=== PATIENT | male | born 1985 | race Two or more races ===

== ENCOUNTER 2018-12-22 14:07 | Emergency (ER) | payer MEDICAID ==
[~2018-12-22] VITALS: Ht 182.9 cm; Wt 87.1 kg
[2018-12-22 15:47] VITALS: BP 147/83
[2018-12-22] MEDS ORDERED: LIDOCAINE 1% HCL (LOCAL ANESTH.) INJ 20ML MDV ONE (16:25)
[2018-12-22] MEDS ORDERED: IBUPROFEN 800 MG TAB PO ONE (16:45)
[2018-12-22] MEDS ORDERED: TETANUS-DIPTH-ACEL PERTUSSIS 0.5ML SYRG IM ONE (16:45)
== END 2018-12-22 16:55 | disposition home or self-care (01) ==
LOC: ER 14:21
DX: S61.512A Laceration without foreign body of left wrist, initial encounter (principal); F17.210 Nicotine dependence, cigarettes, uncomplicated; F12.10 Cannabis abuse, uncomplicated; W54.0XXA Bitten by dog, initial encounter; Y93.89 Activity, other specified; Y92.89 Other specified places as the place of occurrence of the external cause; Y99.8 Other external cause status
CPT/HCPCS: 12002; 90471; 90715; 99283; J2001

== ENCOUNTER 2019-01-31 19:30 | Emergency (ER) | payer MEDICAID ==
[~2019-01-31] VITALS: Ht 182.9 cm; Wt 84.8 kg
[~2019-01-31 19:30] MED LIST: CLIN1CAP4 PO; LEVO500T21 PO; NAP500T PO
[2019-01-31 19:46] VITALS: BP 114/76
[2019-01-31] MEDS: BACLOFEN 10 MG TAB PO ONE (23:28)
[2019-01-31] MEDS: HYDROcodone-ACET 5/325MG TAB PO ONE (23:28)
== END 2019-01-31 23:54 | disposition home or self-care (01) ==
LOC: ER 19:38
DX: S66.911A Strain of unspecified muscle, fascia and tendon at wrist and hand level, right hand, initial encounter (principal); M54.2 Cervicalgia; M79.641 Pain in right hand; M79.18 Myalgia, other site; F17.210 Nicotine dependence, cigarettes, uncomplicated; F12.10 Cannabis abuse, uncomplicated; Z79.2 Long term (current) use of antibiotics; Z79.899 Other long term (current) drug therapy; V09.9XXA Pedestrian injured in unspecified transport accident, initial encounter; Y93.89 Activity, other specified; Y92.89 Other specified places as the place of occurrence of the external cause; Y99.8 Other external cause status
CPT/HCPCS: 29125; 70450; 71250; 72125; 73110; 73130; 74176

== ENCOUNTER 2019-03-22 16:25 | Emergency (ER) | payer MEDICAID ==
[~2019-03-22] VITALS: Ht 182.9 cm; Wt 84.4 kg
[~2019-03-22 16:25] MED LIST changes: -CLIN1CAP4 PO; +CLIN300C8 PO
[2019-03-22 17:14] LABS: Basophils # (auto) 0.1 uL; Basophils % (auto) 1.2 % (0.0-2.0); Eosinophils # (auto) 0.1 uL; Eosinophils % (auto) 1.3 % (0.0-7.0); Hematocrit 49.8 % (41.0-53.0); Lymphocytes # (auto) 1.9 uL; Lymphocytes % (auto) 26.7 % (10.0-50.0); Mean Corpuscular Hgb Conc. 34.1 g/dL (32.0-36.0); Mean Corpuscular Volume 93.9 fL (80.0-100.0); Monocytes # (auto) 0.4 uL; Monocytes % (auto) 5.1 % (0.0-12.0); Neutrophils # (auto) 4.7 uL; Neutrophils % (auto) 65.7 % (37.0-80.0); Nucleated Red Blood Cells % 0.1 %; Platelet Count (auto) 288 10^3/uL (140-450); Red Cell Distribution Width 15.1 % (11.8-14.3); White Blood Cell 7.2 10^3/uL (4.4-10.8)
[2019-03-22 17:27] LABS: Potassium 3.9 mmol/L (3.5-5.1)
[2019-03-22 17:59] LABS: Albumin 4.6 g/dL (3.4-5.0); BUN/Creatinine Ratio 8.8; Bilirubin, Total 0.6 mg/dL (0.2-1.0); Calcium 8.6 mg/dL (8.5-10.1); Total Protein 7.9 g/dL (6.4-8.2)
[2019-03-22 18:27] LABS: Urine Bacteria NONE SEEN /hpf (None Seen); Urine Blood Negative /uL (Negative); Urine Hyaline Cast FEW /lpf (0 - 2); Urine Mucus FEW (None Seen); Urine Specific Gravity 1.033 (1.001-1.035); Urine WBC 1 /hpf (0 - 3)
[2019-03-22 18:41] LABS: Amphetamine Screen, Urine NEGATIVE (NEGATIVE); Barbiturate Scree,Urine NEGATIVE (NEGATIVE); Benzodiazephine Screen, Urine NEGATIVE (NEGATIVE); Cannabinoid Screen, Urine POSITIVE (NEGATIVE); Cocaine Screen, Urine NEGATIVE (NEGATIVE); Opiate Scree,Urine NEGATIVE (NEGATIVE); Phencyclidine Screen, Urine NEGATIVE (NEGATIVE)
[2019-03-22 22:05] VITALS: BP 138/82
== END 2019-03-22 22:30 | disposition home or self-care (01) ==
LOC: ER 16:25
DX: T67.5XXA Heat exhaustion, unspecified, initial encounter (principal); R55 Syncope and collapse; R11.2 Nausea with vomiting, unspecified; R51 Headache; M54.2 Cervicalgia; F17.210 Nicotine dependence, cigarettes, uncomplicated; F12.10 Cannabis abuse, uncomplicated
CPT/HCPCS: 36415; 70450; 80053; 80307; 81001; 85025; 93005

== ENCOUNTER 2020-06-09 12:52 | Emergency (ER) | payer MEDICAID ==
[~2020-06-09] VITALS: Ht 182.9 cm; Wt 85.3 kg
[2020-06-09 13:34] VITALS: BP 126/93
[2020-06-09] MEDS ORDERED: methylPREDNISolone SOD SUCC 125 MG/2 ML VL IM ONE (14:15)
== END 2020-06-09 14:31 | disposition home or self-care (01) ==
LOC: ER 12:52
DX: B86 Scabies (principal); F17.210 Nicotine dependence, cigarettes, uncomplicated; Z79.899 Other long term (current) drug therapy
CPT/HCPCS: 96372; 99283; J2930

== ENCOUNTER 2020-12-24 07:50 | Emergency (ER) | payer MEDICAID ==
[~2020-12-24] VITALS: Ht 182.9 cm; Wt 90.7 kg
[~2020-12-24 07:50] MED LIST changes: -LEVO500T21 PO; +LEVO500T31 PO
[2020-12-24 08:24] VITALS: BP 124/79
== END 2020-12-24 09:51 | disposition home or self-care (01) ==
LOC: ER 07:50
DX: K02.9 Dental caries, unspecified (principal); F17.210 Nicotine dependence, cigarettes, uncomplicated; Z79.2 Long term (current) use of antibiotics; Z79.899 Other long term (current) drug therapy

== ENCOUNTER 2022-01-19 05:33 | Emergency (ER) | payer MEDICAID ==
[~2022-01-19] VITALS: Ht 182.9 cm; Wt 90.7 kg
[2022-01-19 06:42] LABS: Urine WBC None Seen /hpf (0 - 3)
[2022-01-19 06:45] LABS: Basophils # (auto) 0.1 10 ^3/uL (0-0.2); Basophils % (auto) 1.2 % (0.0-2.0); Eosinophils # (auto) 0.3 10 ^3/uL (0-0.8); Eosinophils % (auto) 3.6 % (0.0-7.0); Hematocrit 47.1 % (41.0-53.0); Hemoglobin 15.5 g/dL (13.5-17.5); Lymphocytes # (auto) 2.2 10 ^3/uL (0.4-5.4); Lymphocytes % (auto) 30.3 % (10.0-50.0); Mean Corpuscular Hemoglobin 31.7 pg (28.0-32.0); Mean Corpuscular Hgb Conc. 32.9 g/dL (32.0-36.0); Mean Corpuscular Volume 96.3 fL (80.0-100.0); Monocytes # (auto) 0.5 10 ^3/uL (0-1.3); Monocytes % (auto) 6.5 % (0.0-12.0); Neutrophils # (auto) 4.2 10 ^3/uL (1.6-8.6); Neutrophils % (auto) 58.4 % (37.0-80.0); Nucleated Red Blood Cells % 0.1 %; Red Blood Cells 4.89 10^6/uL (4.5-5.90); Red Cell Distribution Width 14.9 % (11.8-14.3); White Blood Cell 7.2 10^3/uL (4.4-10.8)
[2022-01-19 06:55] LABS: Urine Bacteria NONE SEEN /hpf (None Seen); Urine Blood Negative /uL (Negative); Urine Specific Gravity 1.019 (1.001-1.035)
[2022-01-19 07:04] LABS: Albumin 3.6 g/dL (3.4-5.0); BUN/Creatinine Ratio 11.1; Calcium 8.3 mg/dL (8.5-10.1); Potassium 4.1 mmol/L (3.5-5.1)
[2022-01-19 07:15] LABS: Bilirubin, Total 0.3 mg/dL (0.2-1.0); Total Protein 6.5 g/dL (6.4-8.2)
[2022-01-19] MEDS ORDERED: ASPirin 325 MG TAB PO ONE (08:45)
[2022-01-19 10:19] VITALS: BP 120/77
== END 2022-01-19 10:32 | disposition home or self-care (01) ==
LOC: ER 05:33
DX: R07.89 Other chest pain (principal); F17.210 Nicotine dependence, cigarettes, uncomplicated; Z79.2 Long term (current) use of antibiotics
CPT/HCPCS: 36415; 80053; 81001; 84484; 85025; 93005

== ENCOUNTER 2024-03-19 21:43 | Emergency (ER) | payer MEDICAID ==
[~2024-03-19] VITALS: Ht 182.9 cm; Wt 81.7 kg
[~2024-03-19 21:43] MED LIST changes: +CLIN1CAP70 PO; -CLIN300C8 PO
[2024-03-19 23:58] VITALS: BP 123/79; TEMP 97.6
[2024-03-20 00:18] VITALS: PULSE 81; RESP 16; O2SAT 99
[2024-03-20] MEDS ORDERED: IBUP-1456 PO (00:23)
[2024-03-20] MEDS ORDERED: CYCL-837 PO (00:23)
== END 2024-03-20 01:02 | disposition home or self-care (01) ==
LOC: ER 21:43
DX: S39.012A Strain of muscle, fascia and tendon of lower back, initial encounter (principal); F17.210 Nicotine dependence, cigarettes, uncomplicated; F12.90 Cannabis use, unspecified, uncomplicated; F15.90 Other stimulant use, unspecified, uncomplicated; Z79.899 Other long term (current) drug therapy; Z79.1 Long term (current) use of non-steroidal anti-inflammatories (NSAID); V89.2XXA Person injured in unspecified motor-vehicle accident, traffic, initial encounter; Y93.89 Activity, other specified; Y92.89 Other specified places as the place of occurrence of the external cause; Y99.8 Other external cause status
CPT/HCPCS: 72100

== ENCOUNTER 2024-05-06 17:22 | Emergency (ER) | payer MEDICAID ==
[~2024-05-06] VITALS: Ht 182.9 cm; Wt 87.3 kg
[~2024-05-06 17:22] MED LIST changes: +IBUP-1456 PO
[2024-05-06 17:31] VITALS: BP 137/99; PULSE 115; RESP 18; O2SAT 99
[2024-05-06] MEDS ORDERED: IBUP-1455 PO (20:51)
== END 2024-05-06 18:21 | disposition left against medical advice (07) ==
LOC: ER 17:22
DX: M54.89 Other dorsalgia (principal); Z53.21 Procedure and treatment not carried out due to patient leaving prior to being seen by health care provider

== ENCOUNTER 2024-10-13 03:04 | Emergency (ER) | payer MEDICAID ==
[~2024-10-13 03:04] MED LIST changes: +IBUP-1455 PO
== END 2024-10-13 03:16 | disposition left against medical advice (07) ==
LOC: ER 03:04
DX: M25.559 Pain in unspecified hip (principal); Z53.21 Procedure and treatment not carried out due to patient leaving prior to being seen by health care provider

== ENCOUNTER 2024-10-13 18:22 | Emergency (ER) | payer MEDICAID | END 2024-10-13 19:58 | disposition left against medical advice (07) | LOC: ER 18:22 | DX: M79.605 Pain in left leg (principal); Z53.21 Procedure and treatment not carried out due to patient leaving prior to being seen by health care provider ==